=== PATIENT | male | born 1995 | race Caucasian/White ===

== ENCOUNTER 2025-06-15 00:30 | Emergency (ER) | payer BC, SELFPAY ==
[2025-06-15] MEDS: ONDANSETRON 4 MG/2 ML INJ IV (01:45)
--- NOTE | 2025-06-15 01:50 | EKG_ITS ---
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
[2025-06-15 02:01] VITALS: BP 130/80; PULSE 83; RESP 18; TEMP 37.3; O2SAT 96; BMI 31.1
[2025-06-15 02:07] LABS: Alanine Aminotransferase 39 IU/L (<50); Albumin 5.1 g/dL (3.5-5.0); Albumin Globulin Ratio 1.5 (1.0-2.8); Alkaline Phosphatase 51 U/L (38-126); Blood Urea Nitrogen 20 mg/dL (9-20); Calcium 9.6 mg/dL (8.4-10.2); Carbon Dioxide 25 mmol/L (22-32); Chloride 103 mmol/L (98-107); Estimated Glomerular Filt Rate > 60 mL/min (>60); Globulin 3.4 g/dL (1.7-4.1); Glucose 130 mg/dL (70-99); HEMOLYSIS 19 (0-50); Lipase 45 U/L (23-300); Potassium 4.6 mmol/L (3.4-5.1); Sodium 139 mmol/L (137-145); Total Protein 8.5 g/dL (6.3-8.2)
[2025-06-15 02:14] LABS: Add Manual Diff / Slide Review NO; Hematocrit 43.9 % (41-53); Hemoglobin 14.9 g/dL (13.5-17.5); Lymphocytes Absolute Auto 900 /uL (1100-4500); Mean Corpuscular HGB Conc 34.0 % (30-36); Mean Corpuscular Hemoglobin 27.3 PG (26-34); Mean Corpuscular Volume 80.3 fL (80-100); Platelet Count 293 X10^3/uL (150-400)
--- NOTE | 2025-06-15 04:30 | DI.RAD.S_ITS ---
PROCEDURE: XR ABDOMEN 1V INDICATIONS: eval for constip TECHNIQUE: One view of the abdomen acquired. COMPARISON: None. FINDINGS: Surgical changes and devices: None. Bowel: Bowel gas pattern is nonspecific with short segment of mildly prominent air-filled small bowel in the left upper quadrant. No wall thickening. Moderate fecal burden seen in the region of the transverse and descending colon. No findings to suggest pneumoperitoneum. Soft tissues: No suspicious abdominal calcifications. Visualized solid organ contours appear normal in size. Bones: No suspicious bony lesions. IMPRESSION: Non-specific bowel gas pattern with short segment of mildly prominent air-filled loop of small bowel in the left upper quadrant. Recommend continued clinical surveillance and follow-up imaging as needed. Moderate fecal burden seen in the transverse and descending colon which may represent constipation. No radiographic evidence of pneumoperitoneum. No significant discrepancy with the manager style radiology preliminary report. Dictated by: Shay Costa M.D. on 06/15/2025 at 7:57 Approved by: Shay Costa M.D. on 06/15/2025 at 7:59
--- NOTE | 2025-06-15 05:11 | ED.ABDPAIN ---
HPI - Abdominal Pain General Chief Complaint: Abdominal Pain Stated Complaint: Abdominal Pain, Constipation, N/V x1Day Time Seen by Provider: 06/15/25 04:30 Source: patient Mode of arrival: Family Vehicle History of Present Illness HPI narrative: 30-year-old male with 2 days duration of crampy abdominal discomfort, hard stools. No black or red stools. No fevers or chills. Some nausea as well. No prior bowel problems, bowel obstructions, or recurrent constipation. Suspected constipation. He has tried fiber tablets but no other treatments. Related Data Allergies Allergy/AdvReac Type Severity Reaction Status Date / Time No Known Drug Allergies Allergy Verified 06/15/25 02:01 Patient History Social History Smoking Status: Never smoker Smoking Status: Never smoker Exam Narrative Exam Narrative: GENERAL: Well-developed patient, in mild distress. HEAD: Atraumatic. Normocephalic. EYES: Pupils equal round and reactive. Extraocular motions intact. No scleral icterus. No injection or drainage. ENT: Nose without bleeding, purulent drainage. Airway patent. NECK: Trachea midline. Non tender CARDIOVASCULAR: Regular rate and rhythm without murmurs, gallops, or rubs. RESPIRATORY: Clear to auscultation. Breath sounds equal bilaterally. No wheezes, rales, or rhonchi. GASTROINTESTINAL: Abdomen soft, non-tender, nondistended. EXTREMITIES: No edema or joint tenderness. BACK: Nontender without deformity or crepitance. No flank tenderness. NEURO: AOx3. Motor functions grossly nonfocal. SKIN: No rash or erythema of visible areas Initial Vital Signs Initial Vital Signs: Vital Signs Temperature 99.1 F 06/15/25 02:01 Pulse Rate 83 06/15/25 02:01 Respiratory Rate 18 06/15/25 02:01 Blood Pressure 130/80 06/15/25 02:01 Pulse Oximetry 96 06/15/25 02:01 Oxygen Delivery Method Room Air 06/15/25 02:01 Course Orders Ordered: Discontinued Medications Magnesium Citrate (Magnesium Citrate 300 Ml Solution) 300 ml PO NOW ONE Stop: 06/15/25 06:01 Last Admin: 06/15/25 06:24 Dose: 300 ml Documented By: Radha Ondansetron HCl (Ondansetron 4 Mg/2 Ml Inj) 4 mg IV NOW PRN PRN Reason: Nausea And Vomiting Last Admin: 06/15/25 01:45 Dose: 4 mg Documented By: KRISTY Ondansetron HCl (Ondansetron 4 Mg Odt) 4 mg PO NOW PRN PRN Reason: Nausea And Vomiting Vital Signs Vital signs: Vital Signs - 8 hr 06/15/25 02:01 06/15/25 05:49 06/15/25 05:49 Temperature 99.1 F Pulse Rate 83 65 Respiratory Rate 18 Blood Pressure 130/80 149/87 H Pulse Oximetry 96 94 Oxygen Delivery Method Room Air 06/15/25 06:00 06/15/25 06:00 Temperature Pulse Rate 60 Respiratory Rate Blood Pressure 139/82 Pulse Oximetry 96 Oxygen Delivery Method MDM - Abdominal Pain Lab Data Attestation: I reviewed the patient's lab results. Lab results narrative: White blood cell count 12917, hemoglobin 14.9, platelets adequate. Glucose 130. Renal function, serum CO2, electrolytes normal. Liver functions normal. Lipase normal. 06/15/25 01:45 06/15/25 01:45 Labs: Lab Results 06/15/25 Range/Units 01:45 WBC 10.3 (4.5-11.0) X10^3/uL RBC 5.46 (4.5-5.9) X10^6/uL Hgb 14.9 (13.5-17.5) g/dL Hct 43.9 (41-53) % MCV 80.3 (80-100) fL MCH 27.3 (26-34) PG MCHC 34.0 (30-36) % RDW 14.2 (11.6-14.8) % Plt Count 293 (150-400) X10^3/uL Neut % (Auto) 87.2 H (50-75) % Lymph % (Auto) 8.7 L (25-40) % Fleming % (Auto) 2.9 L (3-14) % Eos % (Auto) 0.9 L (2-4) % Baso % (Auto) 0.3 (0-2) % Neut # (Auto) 9000 H (9331-5195) /uL Lymph # (Auto) 900 L (0807-7476) /uL Fleming # (Auto) 300 (0-900) /uL Eos # (Auto) 100 (0-450) /uL Baso # (Auto) 0 (0-100) /uL Sodium 139 (137-145) mmol/L Potassium 4.6 (3.4-5.1) mmol/L Chloride 103 (98-107) mmol/L Carbon Dioxide 25 (22-32) mmol/L BUN 20 (9-20) mg/dL Creatinine 0.75 (0.66-1.25) mg/dL Estimated GFR > 60 (>60) mL/min BUN/Creatinine Ratio 26.7 H (6-22) Glucose 130 H (70-99) mg/dL Calcium 9.6 (8.4-10.2) mg/dL Total Bilirubin 1.0 (0.2-1.3) mg/dL AST 31 (17-59) IU/L ALT 39 (<50) IU/L Alkaline Phosphatase 51 (38-126) U/L Total Protein 8.5 H (6.3-8.2) g/dL Albumin 5.1 H (3.5-5.0) g/dL Globulin 3.4 (1.7-4.1) g/dL Albumin/Globulin Ratio 1.5 (1.0-2.8) Lipase 45 (23-300) U/L ECG Data Attestation: I personally reviewed and interpreted this ECG as follows: Interpretation: 0547, sinus bradycardia with sinus arrhythmia, ventricular response rate 51. No obvious ST segment elevation or depression changes. T-wave inversion lead 3, somewhat flat and lead F but upright in lead 2. GA 168, QRS 98, QTC 394. MDM Narrative Medical decision making narrative: 30-year-old male with crampy abdominal pain and hard stools for the last 2 days, concern for constipation. No prior bowel obstruction/surgeries. DDx consider constipation, bowel obstruction, colitis, diverticulitis, gastritis, JAC, PUD, pancreatitis, other. Lab data: White blood cell count 79576, hemoglobin 14.9, platelets adequate. Glucose 130. Renal function, serum CO2, electrolytes normal. Liver functions normal. Lipase normal. X-ray abdomen shows significant large intestine colonic stool burden without obstructive pattern. See radiology report. Will hold off of any advanced abdominal imaging at this time, pending home trial of oral laxative. Trial of liquid laxative, magnesium citrate 300 cc bottle dispensed. Advised to consider taking oral half bottle once at home near his toilet, if no response in 3 hours take another quarter bottle, if no response in 3 hours then take the remaining quarter of the bottle. Encouraged to stay hydrated. Discharged home with family. Return precautions discussed. Discharge Plan Departure Patient Disposition: Home Clinical Impression: Constipation Instructions: DI for Constipation Activity Restrictions/Additional Instructions: Hard stools in crampy abdominal discomfort. Screening x-ray abdomen shows large burden of stool in the colon. No obstructive pattern however. Trial of liquid laxative, magnesium citrate. Drink half the bottle once at home near toilet, if no response in 3 hours then drink another 1/4 of the bottle, if no response in another 3 hours than drink remaining quarter bottle. Consider Gatorade/Powerade to stay hydrated and replace electrolytes. Return if change worsening symptoms or not improved with the above regimen. Stand Alone Forms: Patient Portal/API
[2025-06-15 05:49] VITALS: BP 149/87; PULSE 65; O2SAT 94
[2025-06-15 06:00] VITALS: BP 139/82; PULSE 60; O2SAT 96
[2025-06-15] MEDS: MAGNESIUM CITRATE 300 ML SOLUTION PO (06:24)
== END 2025-06-15 06:27 | disposition home or self-care (01) ==
PROVIDERS: Emergency Provider Emergency Medicine
DX: K59.00 Constipation, unspecified (principal); R11.0 Nausea
CPT/HCPCS: 36415; 74018; 80053; 83690; 85025; 93005; 96374; 99284; J2405